=== PATIENT | male | born 1975 | race Caucasian/White ===

== ENCOUNTER 2024-02-07 06:22 | Day surgery (SDC) | payer BC, SELFPAY | END 2024-02-07 14:19 | disposition home or self-care (01) | LOC: GI 06:22 | PROVIDERS: ATTENDING PHYSICIAN Internal Medicine Gastroenterology | DX: Z12.11 Encounter for screening for malignant neoplasm of colon (principal); K64.0 First degree hemorrhoids; K63.89 Other specified diseases of intestine | CPT/HCPCS: G0121 ==

== ENCOUNTER → 2024-02-21 07:13 | Outpatient (REF) | payer BC, SELFPAY | LOC: RAD 07:13 | PROVIDERS: ATTENDING PHYSICIAN Internal Medicine Gastroenterology; FAMILY PHYSICIAN Internal Medicine | DX: D37.3 Neoplasm of uncertain behavior of appendix (principal) | CPT/HCPCS: 74177; Q9967 ==

== ENCOUNTER 2024-03-21 06:35 | Day surgery (SDC) | payer BC, SELFPAY ==
[2024-03-12 08:59] LABS: Hematocrit 43.3 % (39.0-52.0); Hemoglobin 14.8 g/dL (13.0-18.0); Mean Corp Hgb Conc. 34.2 g/dL (33.0-37.0); Mean Corpuscular Volume 84.9 fL (80.0-94.0); Platelet Count 225 10^3/uL (130-400); Red Cell Dist. Width 11.9 % (11.5-14.5)
[2024-03-12 09:07] LABS: INR 1.02; PT 13.9 Sec (11.4-14.6)
[2024-03-12 09:08] LABS: APTT 27.6 Sec (23.4-35.0)
[2024-03-12 09:20] LABS: ALT (SGPT) 25 U/L (0-50); AST (SGOT) 25 U/L (17-59); Albumin 4.7 g/dl (3.5-5.0); Alkaline Phosphatase 74 U/L (38-126); Blood Urea Nitrogen 20 mg/dl (9-20); Calcium 9.9 mg/dl (8.4-10.2); Carbon Dioxide 28 mmol/L (22-30); Chloride 103 mmol/L (98-107); Glucose 103 mg/dl (70-99); Potassium 4.3 mmol/L (3.5-5.1); Sodium 139 mmol/L (135-145); Total Bilirubin 0.6 mg/dl (0.2-1.3); Total Protein 6.8 g/dl (6.3-8.2); eGFR > 60.00
[2024-03-12 10:43] LABS: Glycohemoglobin (HgbA1c) 5.1 % (4.0-5.6)
[2024-03-12 12:19] VITALS: BMI 29.7
[2024-03-21] VITALS (8 sets, daily range): BP systolic 119–137; BP diastolic 74–97; BMI 29.7
[2024-03-21] MEDS: HEPARIN 5000 UNITS SC (09:04)
[2024-03-21] MEDS: NORMOSOL-R/PLASMALYTE-A 1000 IV (09:06)
[2024-03-21] MEDS: NEURONTIN 600 MG PO (09:06)
[2024-03-21] MEDS: TYLENOL 1000 MG PO (09:06)
[2024-03-21] MEDS: ZOFRAN 4 MG IV (14:41)
== END 2024-03-21 15:12 | disposition home or self-care (01) ==
LOC: SDS 06:35
PROVIDERS: ATTENDING PHYSICIAN Surgery; FAMILY PHYSICIAN Internal Medicine
DX: K38.8 Other specified diseases of appendix (principal); Q43.3 Congenital malformations of intestinal fixation; D12.0 Benign neoplasm of cecum
CPT/HCPCS: 44970; 88304; 36415; 80053; 83036; 85027; 85610; 85730; 86850; 86900; 86901; 93005; J1335

== ENCOUNTER → 2024-10-16 15:47 | Outpatient (REF) | payer BC, SELFPAY | LOC: RAD 15:47 | PROVIDERS: ATTENDING PHYSICIAN Nurse Practitioner Family | DX: M25.561 Pain in right knee (principal) | CPT/HCPCS: 73564 ==

== ENCOUNTER 2025-02-12 06:29 | Day surgery (SDC) | payer BC, SELFPAY ==
[2025-02-12] VITALS (13 sets, daily range): BP systolic 110–146; BP diastolic 73–94; BMI 29.6
[2025-02-12] MEDS: TYLENOL 1000 MG PO (07:45)
[2025-02-12] MEDS: NORMOSOL-R/PLASMALYTE-A 1000 IV (07:45)
[2025-02-12] MEDS: TRANSDERM-SCOP 1 PATCH TRANSDERM (07:46)
== END 2025-02-12 11:45 | disposition home or self-care (01) ==
LOC: SDS 06:29
PROVIDERS: ATTENDING PHYSICIAN Surgery
DX: K40.90 Unilateral inguinal hernia, without obstruction or gangrene, not specified as recurrent (principal)
CPT/HCPCS: 49650